=== PATIENT | male | born 1985 | race Two or more races ===

== ENCOUNTER 2021-05-28 11:09 | Emergency (ER) | payer BC ==
--- NOTE | 2021-05-28 11:42 | EDM.PDOC ---
ED HPI GENERAL MEDICAL PROBLEM - General Chief Complaint: Upper Extremity Injury/Pain Stated Complaint: R HAND WEAKNESS, NUMBNESS Time Seen by Provider: 05/28/21 11:10 Source of Information: Reports: Patient History Limitations: Reports: No Limitations - History of Present Illness INITIAL COMMENTS - FREE TEXT/NARRATIVE: c/o BRADLEY weak x 24h lives alone, had several alc drinks 2d ago, fell asleep on his couch with his dogs, awoke yesterday and BRADLEY was numb from elbow down to fingertips, he had feeling although it did not feel normal to the touch. He had good flex/ext at his elbow, did not had full use of his hand. He went to work at [employer] this AM but did not have control of the computer mouse and went to clinic who sent him here. no pain, R handed, no similar problem in past has had COVID illness and COVID vax in past otherwise feeling well, no n/v, no f/c/d, no sob/cough reports that he has fallen asleep in the past and will awake with stiffness in his posterior neck with slight CHRISTIANSON although this has not occurred recently hand gets stiff at times has DM, takes his meds on schedule BP 140/90 and BS 117 yesterday Right Lower Arm Pain Score (Numeric/FACES): 5 - Related Data Allergies Allergy/AdvReac Type Severity Reaction Status Date / Time No Known Allergies Allergy Verified 05/28/21 11:45 Home Meds: Home Meds Aspirin 81 mg PO DAILY 05/28/21 [History] Empagliflozin [Jardiance] 25 mg PO DAILY 05/28/21 [History] Insulin Detemir [Levemir Flextouch] 25 unit SQ BEDTIME 05/28/21 [History] atorvaSTATin Calcium [Lipitor] 40 mg PO DAILY 05/28/21 [History] lisinopriL [Lisinopril] 40 mg PO DAILY 05/28/21 [History] metFORMIN [Glucophage] 1,000 mg PO BIDMEALS 05/28/21 [History] Review of Systems - Review of Systems Review Of Systems: See Below Constitutional: Reports: No Symptoms Eyes: Reports: No Symptoms Ears: Reports: No Symptoms Nose: Reports: No Symptoms Mouth/Throat: Reports: No Symptoms Respiratory: Reports: No Symptoms Cardiovascular: Reports: No Symptoms GI/Abdominal: Reports: No Symptoms Genitourinary: Reports: No Symptoms Musculoskeletal: Reports: No Symptoms Skin: Reports: No Symptoms Neurological: Reports: Numbness, Paresthesia, Tingling, Weakness. Denies: Confusion, Dizziness, Headache Psychiatric: Reports: No Symptoms ED EXAM, GENERAL - Physical Exam Exam: See Below Exam Limited By: No Limitations General Appearance: Alert, WD/WN, Other (very pleasant, cooperative, normal speech) Ears: Hearing Grossly Normal Nose: Normal Inspection Throat/Mouth: Normal Inspection, Normal Lips, Normal Oropharynx, Normal Voice, No Airway Compromise Head: Atraumatic, Normocephalic Neck: Normal Inspection, Supple, Non-Tender, Full Range of Motion Respiratory/Chest: No Respiratory Distress, Lungs Clear, Normal Breath Sounds, No Accessory Muscle Use, Chest Non-Tender Cardiovascular: Regular Rate, Rhythm, No Edema, No JVD GI/Abdominal: Soft, Non-Tender Back Exam: Normal Inspection, Full Range of Motion Extremities: Normal Inspection, Normal Range of Motion, Non-Tender Neurological: Alert, Oriented, CN II-XII Intact, Normal Cognition, Normal Gait, Other (strength 5/5 at R elbow, not able to dorsiflex R wrist above neutral, plantar flex R wrist 45 degrees but not fully, able to separate fingers but not sustain separation against resistance, hand composition teacher near normal without full control of fingers, light touch intact below elbow, muscular) Psychiatric: Normal Affect, Normal Mood Skin Exam: Warm, Dry, Intact, Normal Color, No Rash, Other (RUE with no red/warm/swell/tender) Lymphatic: No Adenopathy Course - Vital Signs Last Recorded V/S: Last Vital Signs Temp 37.6 C 05/28/21 12:00 Pulse 92 05/28/21 13:04 Resp 16 05/28/21 13:04 BP 131/82 05/28/21 13:04 Pulse Ox 100 05/28/21 13:04 - Orders/Labs/Meds Orders: Active Orders 24 hr Category Date Time Status CK, TOTAL+ISOENZYMES, SERUM Stat Lab 05/28/21 13:15 Received PROTEIN ELEC + INTERP, SERUM Stat Lab 05/28/21 13:15 Received Sodium Chloride 0.9% [Saline Flush] Med 05/28/21 12:06 Active 10 ml FLUSH ASDIRECTED PRN Medication Orders Sodium Chloride (Sodium Chloride 0.9% 10 Ml Syringe) 10 ml FLUSH ASDIRECTED PRN PRN Reason: Keep Vein Open Last Admin: 05/28/21 11:55 Dose: 10 ml Documented by: RONY Labs: Laboratory Tests 05/28/21 05/28/21 05/28/21 Range/Units 11:49 11:49 11:49 WBC 5.3 (3.2-10.1) x10-3/uL RBC 4.74 (3.90-5.90) x10(6)uL Hgb 15.7 (12.9-17.7) g/dL Hct 46.7 (38.3-50.1) % MCV 98.7 (80.8-98.7) fL MCH 33.2 (27.0-33.3) pg MCHC 33.6 (28.7-35.3) g/dL RDW 13.3 (12.4-15.0) % Plt Count 134 (117-477) x10(3)uL MPV 8.7 (6.7-11.0) fL Neut % (Auto) 64.1 (40.3-71.8) % Lymph % (Auto) 21.8 (15.8-45.3) % Dubois % (Auto) 13.2 (5.5-15.2) % Eos % (Auto) 0.6 (0.1-6.8) % Baso % (Auto) 0.3 (0.3-3.8) % Neut # (Auto) 3.4 (1.7-6.9) x10-3/uL Lymph # (Auto) 1.1 (0.5-4.5) x10-3/uL Dubois # (Auto) 0.7 (0.0-1.2) x10-3/uL Eos # (Auto) 0.0 (0.0-0.6) x10-3/uL Baso # (Auto) 0.0 (0.0-0.3) x10-3/uL D-Dimer, Quantitative 0.32 (0.0-0.59) mg/LFEU Sodium 140 (135-145) mmol/L Potassium 4.2 (3.5-5.3) mmol/L Chloride 101 (100-110) mmol/L Carbon Dioxide 26 (21-32) mmol/L BUN 11 (7-18) mg/dL Creatinine 1.0 (0.70-1.30) mg/dL Est Cr Clr Drug Dosing TNP Estimated GFR (MDRD) > 60 (>60) BUN/Creatinine Ratio 11.0 (9-20) Glucose 119 H (80-116) mg/dL Calcium 9.0 (8.6-10.2) mg/dL Magnesium (1.8-2.5) mg/dL Total Bilirubin 0.9 (0.1-1.3) mg/dL AST 56 H (5-25) IU/L ALT 137 H (12-36) U/L Alkaline Phosphatase 65 (56-112) IU/L Creatine Kinase (60-160) IU/L C-Reactive Protein (0.5-0.9) mg/dL Total Protein 8.1 H (6.0-8.0) g/dL Albumin 4.3 (3.5-5.2) g/dL Globulin 3.8 g/dL Albumin/Globulin Ratio 1.1 Urine Color (YELLOW) Urine Appearance (CLEAR) Urine pH (5.0-6.5) Ur Specific [place] (1.010-1.025) Urine Protein (NEGATIVE) mg/dL Urine Glucose (UA) (NORMAL) mg/dL Urine Ketones (NEGATIVE) mg/dL Urine Occult Blood (NEGATIVE) Urine Nitrite (NEGATIVE) Urine Bilirubin (NEGATIVE) Urine Urobilinogen (NEGATIVE) mg/dL Ur Leukocyte Esterase (NEGATIVE) Urine RBC (0-5) Urine WBC (0-5) Ur Squamous Epith Cells (NS,R,O) Urine Bacteria (NS) 05/28/21 05/28/21 05/28/21 Range/Units 11:49 11:49 14:20 WBC (3.2-10.1) x10-3/uL RBC (3.90-5.90) x10(6)uL Hgb (12.9-17.7) g/dL Hct (38.3-50.1) % MCV (80.8-98.7) fL MCH (27.0-33.3) pg MCHC (28.7-35.3) g/dL RDW (12.4-15.0) % Plt Count (117-477) x10(3)uL MPV (6.7-11.0) fL Neut % (Auto) (40.3-71.8) % Lymph % (Auto) (15.8-45.3) % Dubois % (Auto) (5.5-15.2) % Eos % (Auto) (0.1-6.8) % Baso % (Auto) (0.3-3.8) % Neut # (Auto) (1.7-6.9) x10-3/uL Lymph # (Auto) (0.5-4.5) x10-3/uL Dubois # (Auto) (0.0-1.2) x10-3/uL Eos # (Auto) (0.0-0.6) x10-3/uL Baso # (Auto) (0.0-0.3) x10-3/uL D-Dimer, Quantitative (0.0-0.59) mg/LFEU Sodium (135-145) mmol/L Potassium (3.5-5.3) mmol/L Chloride (100-110) mmol/L Carbon Dioxide (21-32) mmol/L BUN (7-18) mg/dL Creatinine (0.70-1.30) mg/dL Est Cr Clr Drug Dosing Estimated GFR (MDRD) (>60) BUN/Creatinine Ratio (9-20) Glucose (80-116) mg/dL Calcium (8.6-10.2) mg/dL Magnesium 1.6 L (1.8-2.5) mg/dL Total Bilirubin (0.1-1.3) mg/dL AST (5-25) IU/L ALT (12-36) U/L Alkaline Phosphatase (56-112) IU/L Creatine Kinase 529 H* (60-160) IU/L C-Reactive Protein < 0.2 L (0.5-0.9) mg/dL Total Protein (6.0-8.0) g/dL Albumin (3.5-5.2) g/dL Globulin g/dL Albumin/Globulin Ratio Urine Color Yellow (YELLOW) Urine Appearance Slightly cloudy (CLEAR) Urine pH 5.0 (5.0-6.5) Ur Specific [place] 1.015 (1.010-1.025) Urine Protein Negative (NEGATIVE) mg/dL Urine Glucose (UA) >1000 H (NORMAL) mg/dL Urine Ketones 50 H (NEGATIVE) mg/dL Urine Occult Blood Moderate H (NEGATIVE) Urine Nitrite Negative (NEGATIVE) Urine Bilirubin Negative (NEGATIVE) Urine Urobilinogen Normal (NEGATIVE) mg/dL Ur Leukocyte Esterase Negative (NEGATIVE) Urine RBC 0-5 (0-5) Urine WBC 0-5 (0-5) Ur Squamous Epith Cells Occasional (NS,R,O) Urine Bacteria Few H (NS) Meds: Medications Generic Name Dose Route Start Last Admin Trade Name Freq PRN Reason Stop Dose Admin Sodium Chloride 10 ml 05/28/21 12:06 05/28/21 11:55 Sodium Chloride 0.9% 10 Ml Syringe FLUSH 10 ml ASDIRECTED PRN Administration Keep Vein Open Discontinued Medications Generic Name Dose Route Start Last Admin Trade Name Freq PRN Reason Stop Dose Admin Magnesium Sulfate 2 gm/ Premix 50 mls @ 12.5 mls/hr 05/28/21 12:50 05/28/21 13:00 IV 05/28/21 16:49 25 mls/hr ONETIME ONE Administration - Re-Assessments/Exams Free Text/Narrative Re-Assessment/Exam: 05/28/21 17:10 unable to obtain MRI here until next week d/w Dr Cortes from [facility] neurosurg who requested an ED to ED transfer for an emergency MR of head and neck, d/w Dr Morales form [facility] emergency dept who accepted pt in transfer pt not sure if a friend available to drive as he thinks they are all drunk altho he is going to check, pt cautioned he would need to be very careful if he drove himself, medically stable, no cognitive issues CTA head and neck shows no vascular injury and no obvious brain injury or stroke per Dr Liao radiologist, there is mod DJD of neck no improvement in motor activity of R hand/wrist after 2 gm Mg IV cervical radiculopathy is leading dx, must also consider possible myopathy given inc'd CPK and total protein and AST/ALT, however no protein in urine, SPEP and CK-MB requested which are send outs pt planning to go to [place] in 2d and to stay there a wk, he has family there and splits time between there and here, pt cautioned that he may need to postpone his trip depending on recommendation of neurosurg Departure - Departure Time of Disposition: 17:07 Disposition: DC/Tfer to Acute Hospital 02 Preliminary Cause of *Q: Sepsis & Multi System Organ Failure Condition: Good Clinical Impression: Right hand weakness, Weakness of wrist, Paresthesia of right upper extremity, Moderate dehydration, Elevated creatine kinase, Elevated total protein, Hypomagnesemia - Discharge Information *PRESCRIPTION DRUG MONITORING PROGRAM REVIEWED*: Not Applicable *COPY OF PRESCRIPTION DRUG MONITORING REPORT IN PATIENT TAE: Not Applicable Referrals: Precious Lamar, CLINICAL PROGRAM MANAGER [Primary Care Provider] - Forms: ED Department Discharge Sepsis Event Note (ED) - Focused Exam Vital Signs: Vital Signs Temp Pulse Resp BP Pulse Ox 05/28/21 13:04 92 16 131/82 100 05/28/21 12:00 37.6 C 100 16 170/78 H 99 - My Orders Last 24 Hours: My Active Orders 05/28/21 12:06 Sodium Chloride 0.9% [Saline Flush] 10 ml FLUSH ASDIRECTED PRN 05/28/21 13:15 CK, TOTAL+ISOENZYMES, SERUM Stat PROTEIN ELEC + INTERP, SERUM Stat - Assessment/Plan Last 24 Hours: My Active Orders 05/28/21 12:06 Sodium Chloride 0.9% [Saline Flush] 10 ml FLUSH ASDIRECTED PRN 05/28/21 13:15 CK, TOTAL+ISOENZYMES, SERUM Stat PROTEIN ELEC + INTERP, SERUM Stat
[2021-05-28] MEDS ORDERED: Sodium Chloride 0.9% 10 ML Syringe FLUSH PRN (12:06)
[2021-05-28] MEDS ORDERED: Magnesium Sulfate/Water 2 GM in Premix Bag 1 BAG IV ONE (12:50)
--- NOTE | 2021-05-28 14:24 | CT ---
INDICATION: Numb below elbow and a weak right hand x 24 hours. COMPUTERIZED TOMOGRAPHY ANGIOGRAPHY OF THE HEAD AND NECK WITH CONTRAST: Spiral 1.25 mm axial sections were obtained through the neck and head with 100 mL Isovue-370 at 5 mL/second with sagittal and coronal reconstructions 05/28/21 - no comparisons. TOTAL EXAM DLP: 434.14 mGy/cm. The arterial structures were well visualized and patent without significant stenosis suggested. No occlusions were noted intracranially or in the neck. No shift of midline structures or ventricular abnormalities were identified. No gross parenchymal changes were seen, but are not ideally visualized with these images. Degenerative disc disease is noted in the cervical spine at C5-6, C6-7 and possibly minimally at C4-5. Hypertrophic changes are most prominent at C5-6. Neural foramina were fairly patent. The visualized paranasal sinuses showed evidence of thickening of the linings of the maxillary antra, right greater than left, with thickening of the lining of an ethmoidal air cell on the left anteriorly and minimally on the right. The paranasal sinuses and mastoid air cells are otherwise well aerated. The cranium appears to be intact. IMPRESSION: 1. Cervical disc disease C4 through C7. 2. Essentially normal-appearing neck and head arterial system. 3. Thickening of the linings of the maxillary antra, right greater than left. Report was called to Dr. Borrego at 1332 hours, 05/28/21. [facility]
[2021-05-30 15:11] LABS: A/G RATIO 1.3 (0.7-1.7); ALBUMIN 4.3 g/dL (2.9-4.4); ALPHA-1-GLOBULIN 0.2 g/dL (0.0-0.4); ALPHA-2-GLOBULIN 0.6 g/dL (0.4-1.0); BETA GLOBULIN 1.2 g/dL (0.7-1.3); GAMMA GLOBULIN 1.4 g/dL (0.4-1.8); GLOBULIN, TOTAL 3.3 g/dL (2.2-3.9); M-SPIKE Not Observed g/dL (Not Observed); PROTEIN, TOTAL, SERUM 7.6 g/dL (6.0-8.5)
[2021-05-30 19:11] LABS: CK-BB 0 % (0); CK-MB 0 % (0-3); CK-MM 96 % (97-100); MACRO TYPE 1 4 % (Not Observed); MACRO TYPE 2 0 % (Not Observed)
== END 2021-05-28 17:55 ==
LOC: FB.ED 11:09
DX: M62.81 Muscle weakness (generalized) (principal); R20.2 Paresthesia of skin; E86.0 Dehydration; R74.8 Abnormal levels of other serum enzymes; E83.42 Hypomagnesemia; Z79.82 Long term (current) use of aspirin; Z79.4 Long term (current) use of insulin; Z79.899 Other long term (current) drug therapy
CPT/HCPCS: 36415; 70496; 70498; 80053; 81001; 82550; 82552; 83735; 84165; 85025; 85379; 86140; 96365; 96366; 99285-25; J3475